=== PATIENT | female | born 1995 | race Caucasian/White ===

== ENCOUNTER 2020-05-11 14:07 | Emergency (ER) | payer OTHER ==
[2020-05-11 14:20] VITALS: BP 133/76
--- NOTE | 2020-05-11 15:11 | ER Document Report ---
ED General - General Chief Complaint: Nasal Congestion Stated Complaint: CONGESTION Time Seen by Provider: 05/11/20 14:25 - HPI Notes: Chief complaint: Nasal congestion History of present illness: Generally healthy 25-year-old female taking no regular medications no known allergies reports 3 days history of nasal congestion and mild soreness over the facial area. She has had copious serous rhinorrhea and mild sore throat. No fever or chills. No vomiting. No known exposure to Covid virus. No recent travel. Does not currently work outside the home. Patient says she stopped smoking about 3 months ago. She is currently trying to become . - Related Data Allergies/Adverse Reactions: No Known Allergies Allergy (Verified 05/11/20 14:30) Home Medications: pre- vitamins Past Medical History - General Information source: Patient - Social History Smoking Status: Former Smoker Frequency of alcohol use: None Drug Abuse: None Lives with: Family Family History: Reviewed & Not Pertinent Patient has homicidal ideation: No - Medical History Medical History: Negative Review of Systems - Review of Systems Notes: Constitutional: Negative for fever. HENT: As per HPI. Eyes: Negative for visual changes. Cardiovascular: Negative for chest pain. Respiratory: Negative for shortness of breath. Gastrointestinal: Negative for abdominal pain, vomiting or diarrhea. Genitourinary: Negative for dysuria. Musculoskeletal: Negative for back pain. Skin: Negative for rash. Neurological: Negative for headaches, focal weakness or numbness. 10 point ROS negative except as marked above and in HPI. Physical Exam - Vital signs Vitals: Temp Pulse Resp BP Pulse Ox 97.9 F 90 16 133/76 H 100 05/11/20 14:20 05/11/20 14:20 05/11/20 14:20 05/11/20 14:20 05/11/20 14:20 - Notes Notes: GENERAL: Well-developed well-nourished female approximately stated age appearing in no acute distress. SKIN: Good turgor no rashes. HEAD: Normocephalic atraumatic. EYES: PERRLA. EOMI. Conjunctivae mildly injected bilaterally. EARS: CANALS AND TMS CLEAR. NOSE: Serous nasal drainage bilaterally. MOUTH: Moist mucosa. Good dentition. No stridor or edema. No drooling. Throat: Mildly injected without exudate. NECK: Supple. No masses or thyromegaly. No adenopathy. Carotids 2+ without bruits. No JVD. BACK: Symmetrical without tenderness. CHEST: Respirations unlabored. Breath sounds clear and symmetrical. HEART: Regular rhythm. No murmur gallop or rub. ABDOMEN: Soft nontender without masses, organomegaly or rebound. Bowel sounds normally active. No bruits. GENITALIA: Deferred. EXTREMITIES: No edema. No calf tenderness. Cap refill less than 1.5 seconds. Dorsalis pedis and posterior tibial pulses 3+ and symmetrical. NEUROLOGICAL: GCS 15. Alert and oriented x3. Normal gait. Fluent speech. Cranial nerves II through XII intact. Sensorimotor and cerebellar normal. Normal tone. PSYCHIATRIC: Appropriate affect. Course - Re-evaluation Re-evalutation: 05/11/20 15:09 Clinically the patient appears to have a viral URI. Covid swab has been collected encourage self-isolation at home until results of testing are known in approximately 72 hours. Patient may take Tylenol as needed and push oral fluids. I discouraged use of antihistamine/decongestant because of her current desire for . Findings, clinical impression and plan of treatment have been discussed with patient/family. Understanding of current findings and recommendations has been acknowledged by them and there is agreement regarding disposition and follow-up. - Vital Signs Vital signs: Temp Pulse Resp BP Pulse Ox 97.9 F 90 16 133/76 H 100 05/11/20 14:20 05/11/20 14:20 05/11/20 14:20 05/11/20 14:20 05/11/20 14:20 Discharge - Discharge Clinical Impression: Viral URI Condition: Stable Disposition: HOME, SELF-CARE Additional Instructions: Increase oral fluids. Tylenol as needed. Return here as needed for new or worsening symptoms. Remain on isolation at home until you receive results of your pending Covid test results. Referrals: [facility] [Provider Group] - Follow up as needed
== END 2020-05-11 15:18 | disposition home or self-care (01) ==
LOC: ER 14:07
DX: J06.9 Acute upper respiratory infection, unspecified (principal); B97.89 Other viral agents as the cause of diseases classified elsewhere; R09.81 Nasal congestion; J34.89 Other specified disorders of nose and nasal sinuses; J02.9 Acute pharyngitis, unspecified; Z87.891 Personal history of nicotine dependence; Z20.828 Contact with and (suspected) exposure to other viral communicable diseases
CPT/HCPCS: 99282; 87635; C9803